=== PATIENT | male | born 1950 | race Caucasian/White ===

== ENCOUNTER 2024-01-31 11:16 | Emergency (ER) | payer BC, MEDICARE ==
[2024-01-31 11:35] LABS: BASOPHILS ABSOLUTE AUTO 0.03 K/uL (0.00-0.20); BASOPHILS PERCENT AUTO 0.2 % (0.0-2.0); EOSINOPHILS ABSOLUTE AUTO 0.05 K/uL (0.00-0.50); EOSINOPHILS PERCENT AUTO 0.3 % (0.0-5.0); HEMATOCRIT 44.3 % (39.0-49.0); HEMOGLOBIN 14.7 g/dL (13.1-16.8); LYMPHOCYTES PERCENT AUTO 10.1 % (10.0-50.0); MEAN CORPUSCULAR HEMOGLOBIN 30.3 pg (28.2-33.3); MEAN CORPUSCULAR HGB CONC 33.2 g/dL (31.7-36.0); MEAN CORPUSCULAR VOLUME 91.3 fL (84.0-98.0); MONOCYTES ABSOLUTE AUTO 1.68 K/uL (0.00-1.00); NEUTROPHILS ABSOLUTE AUTO 13.29 K/uL (1.40-7.00); NEUTROPHILS PERCENT AUTO 79.4 % (45.0-80.0); PLATELET COUNT,PLT 230 K/uL (150-350); RED BLOOD CELL COUNT 4.85 M/uL (4.33-5.41); RED CELL DISTRIBUTION WIDTH 13.6 % (11.2-14.1); WHITE BLOOD CELL COUNT,WBC 16.8 K/uL (4.0-10.2)
[2024-01-31 11:57] LABS: ALANINE AMINOTRANSFERASE,ALT 28 U/L (12-78); ALBUMIN 3.6 g/dL (3.4-5.0); ALKALINE PHOSPHATASE 53 IU/L (46-116); ANION GAP 5.3 meq/L (7-15); ASPARTATE AMNIOTRANSFERASE,AST 18 U/L (15-37); BILIRUBIN TOTAL 0.7 mg/dL (0.2-1.0); BLOOD UREA NITROGEN,BUN 26 mg/dL (7-18); CARBON DIOXIDE,CO2 26.7 mmol/L (21.0-32.0); CHLORIDE,CL 104 mmol/L (98-107); CREATININE 1.57 mg/dL (0.51-1.17); GLUCOSE RANDOM 110 mg/dL (70-99); POTASSIUM,K 4.5 mmol/L (3.5-5.1); PROTEIN TOTAL,TP 7.2 g/dL (6.4-8.2); SODIUM,NA 136 mmol/L (136-145)
[2024-01-31 12:06] LABS: ESTIMATED GFR 46 mL/min (>=60)
[2024-01-31 12:08] LABS: APPEARANCE,URINE SLIGHTLY CLOUDY; BILIRUBIN,URINE NEGATIVE (NEGATIVE); COLOR,URINE YELLOW; GLUCOSE,URINE 100 mg/dL (NEGATIVE); KETONES,URINE NEGATIVE (NEGATIVE); LEUKOCYTE ESTERASE,URINE MODERATE (NEGATIVE); NITRITE,URINE NEGATIVE (NEGATIVE); OCCULT BLOOD,URINE MODERATE (NEGATIVE); PH,URINE 5.5 (5.0-9.0); PROTEIN,URINE NEGATIVE (NEGATIVE); UROBILINOGEN,URINE 0.2 E.U./dL (0.2-1.0)
[2024-01-31 12:11] LABS: BACTERIA,URINE MODERATE /HPF (NONE TO FEW); EPITHELIAL CELLS,URINE FEW /LPF; WBC,URINE 75-100 /HPF
[2024-01-31] MEDS: Take Home: Ciprofloxacin HCl 500 MG, 6 Tab Pack PO ONE (12:55)
[2024-01-31 12:56] LABS: LACTIC ACID 1.2 mmol/L (0.4-2.0)
== END 2024-01-31 13:00 | disposition home or self-care (01) ==
LOC: LL.ED 11:16
DX: N41.0 Acute prostatitis (principal); R31.9 Hematuria, unspecified
CPT/HCPCS: 36415; 51798; 80053; 81001; 83605; 85025; 87086; 87088; 87186; 99283; 99284; A9270-GY

== ENCOUNTER 2024-01-31 18:32 | Inpatient (IN) | payer BC, MEDICARE ==
[2024-01-31 19:03] LABS: BASOPHILS ABSOLUTE AUTO 0.03 K/uL (0.00-0.20); BASOPHILS PERCENT AUTO 0.2 % (0.0-2.0); HEMATOCRIT 41.5 % (39.0-49.0); LYMPHOCYTES ABSOLUTE AUTO 1.05 K/uL (0.50-3.50); LYMPHOCYTES PERCENT AUTO 7.2 % (10.0-50.0); MEAN CORPUSCULAR HEMOGLOBIN 30.5 pg (28.2-33.3); MEAN CORPUSCULAR HGB CONC 33.7 g/dL (31.7-36.0); MEAN CORPUSCULAR VOLUME 90.4 fL (84.0-98.0); MONOCYTES PERCENT AUTO 9.7 % (2.0-14.0); NEUTROPHILS ABSOLUTE AUTO 12.02 K/uL (1.40-7.00); NEUTROPHILS PERCENT AUTO 82.9 % (45.0-80.0); PLATELET COUNT,PLT 228 K/uL (150-350); RED BLOOD CELL COUNT 4.59 M/uL (4.33-5.41); RED CELL DISTRIBUTION WIDTH 13.4 % (11.2-14.1); WHITE BLOOD CELL COUNT,WBC 14.5 K/uL (4.0-10.2)
[2024-01-31] MEDS: Lactated Ringers 500 ML IV ONE (19:19)
[2024-01-31] MEDS: Sodium Chloride 0.9% 10 ML Syringe FLUSH PRN (19:19)
[2024-01-31 19:24] LABS: ALANINE AMINOTRANSFERASE,ALT 24 U/L (12-78); ALBUMIN 3.4 g/dL (3.4-5.0); ALKALINE PHOSPHATASE 48 IU/L (46-116); ANION GAP 17.1 meq/L (7-15); ASPARTATE AMNIOTRANSFERASE,AST 27 U/L (15-37); BILIRUBIN TOTAL 0.8 mg/dL (0.2-1.0); BLOOD UREA NITROGEN,BUN 27 mg/dL (7-18); CALCIUM 8.6 mg/dL (8.5-10.1); CARBON DIOXIDE,CO2 19.4 mmol/L (21.0-32.0); CHLORIDE,CL 101 mmol/L (98-107); CREATININE 2.08 mg/dL (0.51-1.17); ESTIMATED GFR 33 mL/min (>=60); GLUCOSE RANDOM 147 mg/dL (70-99); POTASSIUM,K 4.5 mmol/L (3.5-5.1); PROTEIN TOTAL,TP 7.1 g/dL (6.4-8.2); SODIUM,NA 133 mmol/L (136-145)
[2024-01-31] MEDS: Acetaminophen 500 MG Tab PO PRN (19:25)
[2024-01-31 20:11] LABS: INR 1.1 (0.9-1.1); PROTHROMBIN TIME 10.9 SEC (9.0-11.1); PTT,PARTIAL THROMBOPLSTIN TIME 28.5 SEC (23.6-29.8)
[2024-01-31] MEDS: Piperacillin/Tazobactam 4.5 GM in Sodium Chloride 0.9% 100 ML IV ONE (20:12)
[2024-01-31] MEDS: Vancomycin 1,500 GM in Sodium Chloride 0.9% 250 ML IV ONE (21:08)
[2024-01-31] MEDS: Nicotine 14 MG/24 Hr Patch TRDERM SCH (21:29)
[2024-01-31] MEDS: Lactated Ringers 1,000 ML IV SCH (21:29)
[2024-01-31 22:13] LABS: LACTIC ACID 0.9 mmol/L (0.4-2.0)
[2024-01-31] MEDS ORDERED: Ondansetron 4 MG Tab.DIS PO PRN (23:51)
[2024-01-31] MEDS ORDERED: Ondansetron 4 MG/2 ML SDV IVPUSH PRN (23:51)
[2024-02-01 07:53] LABS: BASOPHILS ABSOLUTE AUTO 0.03 K/uL (0.00-0.20); BASOPHILS PERCENT AUTO 0.3 % (0.0-2.0); EOSINOPHILS ABSOLUTE AUTO 0.06 K/uL (0.00-0.50); EOSINOPHILS PERCENT AUTO 0.5 % (0.0-5.0); HEMATOCRIT 38.3 % (39.0-49.0); HEMOGLOBIN 12.8 g/dL (13.1-16.8); LYMPHOCYTES ABSOLUTE AUTO 1.41 K/uL (0.50-3.50); LYMPHOCYTES PERCENT AUTO 11.9 % (10.0-50.0); MEAN CORPUSCULAR HEMOGLOBIN 30.8 pg (28.2-33.3); MEAN CORPUSCULAR HGB CONC 33.4 g/dL (31.7-36.0); MEAN CORPUSCULAR VOLUME 92.3 fL (84.0-98.0); MONOCYTES ABSOLUTE AUTO 1.72 K/uL (0.00-1.00); MONOCYTES PERCENT AUTO 14.5 % (2.0-14.0); NEUTROPHILS ABSOLUTE AUTO 8.63 K/uL (1.40-7.00); NEUTROPHILS PERCENT AUTO 72.8 % (45.0-80.0); PLATELET COUNT,PLT 189 K/uL (150-350); RED BLOOD CELL COUNT 4.15 M/uL (4.33-5.41); RED CELL DISTRIBUTION WIDTH 13.4 % (11.2-14.1); WHITE BLOOD CELL COUNT,WBC 11.9 K/uL (4.0-10.2)
[2024-02-01 08:00] LABS: ALBUMIN 2.9 g/dL (3.4-5.0); ANION GAP 6.9 meq/L (7-15); BILIRUBIN TOTAL 0.7 mg/dL (0.2-1.0); CALCIUM 8.3 mg/dL (8.5-10.1); CARBON DIOXIDE,CO2 24.1 mmol/L (21.0-32.0); CREATININE 1.54 mg/dL (0.51-1.17); EST CRCL DRUG DOSING (CG) 44.11 mL/min; POTASSIUM,K 4.2 mmol/L (3.5-5.1); PROTEIN TOTAL,TP 6.2 g/dL (6.4-8.2)
[2024-02-01] MEDS: Vancomycin 1 GM SDV ONE ×2 (08:00)
[2024-02-01 08:06] LABS: LACTIC ACID 0.8 mmol/L (0.4-2.0)
[2024-02-01] MEDS: Piperacillin/Tazobactam 4.5 GM in Sodium Chloride 0.9% 100 ML IV SCH ×2 (08:28→17:13)
[2024-02-01] MEDS: Lisinopril 20 MG Tab PO SCH (08:28)
[2024-02-01] MEDS: Aspirin 81 MG Tab.Chew PO SCH (08:37)
[2024-02-01] MEDS: Non-Formulary Medication 1 Each (Aspirin [Vazalore] 81 MG Capsule) PO SCH (08:39)
[2024-02-02 07:27] LABS: BASOPHILS ABSOLUTE AUTO 0.03 K/uL (0.00-0.20); BASOPHILS PERCENT AUTO 0.4 % (0.0-2.0); EOSINOPHILS ABSOLUTE AUTO 0.16 K/uL (0.00-0.50); EOSINOPHILS PERCENT AUTO 2.3 % (0.0-5.0); HEMATOCRIT 39.7 % (39.0-49.0); HEMOGLOBIN 13.1 g/dL (13.1-16.8); LYMPHOCYTES PERCENT AUTO 20.5 % (10.0-50.0); MEAN CORPUSCULAR HEMOGLOBIN 30.3 pg (28.2-33.3); MEAN CORPUSCULAR VOLUME 91.9 fL (84.0-98.0); MONOCYTES PERCENT AUTO 17.6 % (2.0-14.0); NEUTROPHILS ABSOLUTE AUTO 4.04 K/uL (1.40-7.00); NEUTROPHILS PERCENT AUTO 59.2 % (45.0-80.0); PLATELET COUNT,PLT 190 K/uL (150-350); RED BLOOD CELL COUNT 4.32 M/uL (4.33-5.41); RED CELL DISTRIBUTION WIDTH 13.6 % (11.2-14.1); WHITE BLOOD CELL COUNT,WBC 6.8 K/uL (4.0-10.2)
[2024-02-02 08:25] LABS: ANION GAP 10.3 meq/L (7-15); BILIRUBIN TOTAL 0.6 mg/dL (0.2-1.0); CALCIUM 8.6 mg/dL (8.5-10.1); CARBON DIOXIDE,CO2 21.7 mmol/L (21.0-32.0); CREATININE 1.55 mg/dL (0.51-1.17); EST CRCL DRUG DOSING (CG) 43.83 mL/min; POTASSIUM,K 4.1 mmol/L (3.5-5.1); PROTEIN TOTAL,TP 6.6 g/dL (6.4-8.2)
== END 2024-02-02 12:45 | disposition home or self-care (01) | DRG 872 ==
LOC: LL.ED 18:32 → LL.MS 19:15
PROVIDERS: ADMIT Physician Assistant; ATTEND Physician Assistant
DX: A41.9 Sepsis, unspecified organism (principal); N39.0 Urinary tract infection, site not specified; N41.0 Acute prostatitis; I10 Essential (primary) hypertension; R31.9 Hematuria, unspecified; F17.210 Nicotine dependence, cigarettes, uncomplicated; Z79.82 Long term (current) use of aspirin; Z79.899 Other long term (current) drug therapy
CPT/HCPCS: 36415; 71046; 80053; 83605; 84484; 85025; 85610; 85730; 87040; 96361; 96365; 99285-25; A9270-GY; J2543; J3370; J3490; J7050; J7120

== ENCOUNTER 2024-12-01 01:08 | Emergency (ER) | payer MEDICARE, OTHER ==
[2024-12-01] MEDS ORDERED: Sodium Chloride 0.9% 10 ML Syringe FLUSH PRN (01:14)
[2024-12-01 01:30] LABS: BASOPHILS ABSOLUTE AUTO 0.04 K/uL (0.00-0.20); BASOPHILS PERCENT AUTO 0.4 % (0.0-2.0); EOSINOPHILS ABSOLUTE AUTO 0.24 K/uL (0.00-0.50); EOSINOPHILS PERCENT AUTO 2.6 % (0.0-5.0); HEMATOCRIT 41.5 % (39.0-49.0); HEMOGLOBIN 14.2 g/dL (13.1-16.8); IMMATURE GRAN ABSOLUTE AUTO 0.02 10^3/uL (0.00-0.04); IMMATURE GRAN PERCENT AUTO 0.2 % (0.0-0.4); LYMPHOCYTES ABSOLUTE AUTO 3.29 K/uL (0.50-3.50); LYMPHOCYTES PERCENT AUTO 36.3 % (10.0-50.0); MEAN CORPUSCULAR HEMOGLOBIN 31.2 pg (28.2-33.3); MEAN CORPUSCULAR HGB CONC 34.2 g/dL (31.7-36.0); MEAN CORPUSCULAR VOLUME 91.2 fL (84.0-98.0); MONOCYTES ABSOLUTE AUTO 1.14 K/uL (0.00-1.00); MONOCYTES PERCENT AUTO 12.6 % (2.0-14.0); NEUTROPHILS ABSOLUTE AUTO 4.34 K/uL (1.40-7.00); NEUTROPHILS PERCENT AUTO 47.9 % (45.0-80.0); PLATELET COUNT,PLT 214 K/uL (150-350); RED BLOOD CELL COUNT 4.55 M/uL (4.33-5.41); RED CELL DISTRIBUTION WIDTH 12.7 % (11.2-14.1); WHITE BLOOD CELL COUNT,WBC 9.1 K/uL (4.0-10.2)
[2024-12-01 01:53] LABS: PROTHROMBIN TIME 9.9 SEC (9.0-11.1)
[2024-12-01 01:54] LABS: ALANINE AMINOTRANSFERASE,ALT 28 U/L (12-78); ALBUMIN 3.1 g/dL (3.4-5.0); ALKALINE PHOSPHATASE 73 IU/L (46-116); ASPARTATE AMNIOTRANSFERASE,AST 14 U/L (15-37); BILIRUBIN TOTAL 0.3 mg/dL (0.2-1.0); BLOOD UREA NITROGEN,BUN 31 mg/dL (7-18); CALCIUM 8.7 mg/dL (8.5-10.1); CHLORIDE,CL 107 mmol/L (98-107); CREATININE 1.44 mg/dL (0.51-1.17); GLUCOSE RANDOM 120 mg/dL (70-99); LIPASE 53 U/L (16-77); POTASSIUM,K 4.6 mmol/L (3.5-5.1); PROTEIN TOTAL,TP 6.6 g/dL (6.4-8.2); SODIUM,NA 140 mmol/L (136-145)
[2024-12-01 01:55] LABS: ESTIMATED GFR 51 mL/min (>=60)
[2024-12-01] MEDS: Cyclobenzaprine 10 MG Tab PO ONE (02:02)
[2024-12-01] MEDS: Ketorolac 15 MG/ML SDV IVPUSH ONE (02:03)
== END 2024-12-01 02:18 | disposition home or self-care (01) ==
LOC: LL.ED 01:08
DX: R07.89 Other chest pain (principal); I10 Essential (primary) hypertension; E78.00 Pure hypercholesterolemia, unspecified; Z79.82 Long term (current) use of aspirin; Z79.899 Other long term (current) drug therapy
CPT/HCPCS: 36415; 71101-LT; 80053; 83690; 83735; 84484; 85025; 85610; 93005; 96374; 99285-25; A9270-GY; J1885